=== PATIENT | female | born 1995 | race Two or more races ===

== ENCOUNTER 2016-09-14 11:17 | Observation (INO) | payer SELFPAY ==
[2016-05-30 23:00] VITALS: BP 125/65
[~2016-09-14 11:17] MED LIST: METR500T PO; PNV1TABL25 PO
[2016-09-14] MEDS ORDERED: hydrOXYzine PAMOATE 25 MG CAPSULE PO ONE (12:30)
[2016-09-14] MEDS ORDERED: ACETAMINOPHEN 500 MG TABLET PO ONE (12:30)
== END 2016-09-14 13:45 | disposition home or self-care (01) ==
LOC: 3 SO LND 11:17 → MERGE 11:17
PROVIDERS: ADMIT Specialist; ATTEND Specialist
DX: O26.892 Other specified pregnancy related conditions, second trimester (principal); M54.9 Dorsalgia, unspecified; Z3A.24 24 weeks gestation of pregnancy
CPT/HCPCS: G0378; G0379; Q0177

== ENCOUNTER 2016-10-07 16:48 | Observation (INO) | payer SELFPAY ==
[2016-05-30 23:00] VITALS: BP 125/65
== END 2016-10-07 19:30 | disposition home or self-care (01) ==
LOC: 3 SO LND 16:48
PROVIDERS: ADMIT Obstetrics & Gynecology; ATTEND Obstetrics & Gynecology
DX: O26.892 Other specified pregnancy related conditions, second trimester (principal); N89.8 Other specified noninflammatory disorders of vagina; Z3A.27 27 weeks gestation of pregnancy
CPT/HCPCS: G0378; G0379

== ENCOUNTER 2016-10-15 11:12 | Observation (INO) | payer SELFPAY ==
[2016-05-30 23:00] VITALS: BP 125/65
[2016-10-15 12:30] LABS: BILIRUBIN,URINE NEGATIVE (NEG); GLUCOSE,URINE NEGATIVE (NEG); NITRITE,URINE NEGATIVE (NEG); PROTEIN,URINE 30 mg/dL (NEG-TRACE)
[2016-10-15] MEDS ORDERED: IV RINGERS,LACTATED 1000ML 1,000 ML IV SCH (12:30)
[2016-10-15 12:34] LABS: BARBITURATES NEG (NEG); BENZODIAZEPINES NEG (NEG); CANNABINOIDS NEG (NEG); COCAINE NEG (NEG); METHADONE NEG (NEG); OPIATES NEG (NEG); PHENCYCLIDINE NEG (NEG)
[2016-10-15 12:55] LABS: BACTERIA,URINE MODERATE /HPF (0-FEW); RBC,URINE 0 /HPF (0-2); SQUAMOUS EPITHELIAL CELL,UR MOD /LPF
[2016-10-15] MEDS ORDERED: hydrOXYzine IM 50 MG/ML VIAL IM ONE (13:30)
== END 2016-10-15 19:42 | disposition home or self-care (01) ==
LOC: 3 SO LND 11:12
PROVIDERS: ADMIT Obstetrics & Gynecology; ATTEND Obstetrics & Gynecology
DX: Z34.90 Encounter for supervision of normal pregnancy, unspecified, unspecified trimester (principal); Z3A.00 Weeks of gestation of pregnancy not specified
CPT/HCPCS: 81001; 87086; G0378; G0379; G0481; J3410

== ENCOUNTER 2016-12-01 12:31 | Observation (INO) | payer SELFPAY ==
[2016-05-30 23:00] VITALS: BP 125/65
[2016-12-01] MEDS ORDERED: IV RINGERS,LACTATED 1000ML 1,000 ML IV SCH (13:30)
[2016-12-01 14:02] LABS: BILIRUBIN,URINE NEGATIVE (NEG); GLUCOSE,URINE NEGATIVE (NEG); NITRITE,URINE NEGATIVE (NEG); PROTEIN,URINE NEGATIVE (NEG-TRACE); UROBILINOGEN,URINE 0.2 mg/dL (0.2 mg/dL)
[2016-12-01 14:08] LABS: BARBITURATES NEG (NEG); BENZODIAZEPINES NEG (NEG); CANNABINOIDS NEG (NEG); COCAINE NEG (NEG); METHADONE NEG (NEG); OPIATES NEG (NEG); PHENCYCLIDINE NEG (NEG)
== END 2016-12-01 15:20 | disposition home or self-care (01) ==
LOC: 3 SO LND 12:31
PROVIDERS: ADMIT Obstetrics & Gynecology; ATTEND Obstetrics & Gynecology
DX: O36.8130 Decreased fetal movements, third trimester, not applicable or unspecified (principal); O21.2 Late vomiting of pregnancy; Z3A.00 Weeks of gestation of pregnancy not specified
CPT/HCPCS: 80307; 81003; G0378; G0379; G0479

== ENCOUNTER 2020-07-26 09:06 | Emergency (ER) | payer SELFPAY ==
[~2020-07-26] VITALS: Ht 149.9 cm; Wt 59.0 kg
[~2020-07-26 09:06] MED LIST changes: +CEPH-264 PO
--- NOTE | 2020-07-26 09:30 | ED.ADGEN ---
Past Medical History Past Medical History: No Pertinent History Past Surgical History: No Surgical History Smoking Status: Never Smoker Alcohol Use: None Drug Use: None General Adult EDM: Chief Complaint: FLU SYMPTOM HPI: HPI: Patient is a 24-year-old female who arrives ambulatory to the emergency department complaining of a 3-day history of body aches with headaches and low- grade fevers. Patient also reports to nausea with vomiting and diarrhea during this time as well. Patient further states that she has right lower quadrant abdominal pain which is gotten progressively worse during this time. Patient is unaware however of any known sick contacts. Additionally she denies any shortness of air or chest pain however she does report some tightness. She states that this time she is unable to eat or drink reliably as everything she ingests is regurgitated. She is awake, alert and uncomfortable appearing Review of Systems: Review of Systems: Constitutional: Reports fever. chills. [] Eyes: Denies change in visual acuity. [] HENT: Denies nasal congestion or sore throat. [] Respiratory: Denies cough or shortness of breath. [] Cardiovascular: Denies chest pain or edema. [] GI: Denies abdominal pain, nausea, vomiting or diarrhea. [] : Reports right flank pain. Denies dysuria. [] Musculoskeletal: Reports body aches. [] Integument: Denies rash. [] Neurologic: Reports headache. Denies focal weakness or sensory changes. [] Endocrine: Denies polyuria or polydipsia. [] Lymphatic: Denies swollen glands. [] Psychiatric: Denies depression or anxiety. [] Current Medications: Current Medications Medications (Trade) Dose Ordered Sig/Georgie Start Time Stop Time Status Last Admin Dose Admin Acetaminophen (Tylenol) 650 mg 1X ONCE 07/26/20 11:15 07/26/20 11:16 DC 07/26/20 11:22 650 MG Ceftriaxone Sodium (Rocephin) 1 gm 1X ONCE 07/26/20 10:15 07/26/20 10:17 DC 07/26/20 10:58 1 GM Diphenhydramine HCl (Benadryl) 50 mg 1X ONCE 07/26/20 09:30 07/26/20 09:31 DC 07/26/20 09:32 50 MG Metoclopramide HCl (Reglan Vial) 10 mg 1X ONCE 07/26/20 09:30 07/26/20 09:31 DC 07/26/20 09:32 10 MG Sodium Chloride 1,000 ml @ 1,000 mls/hr 1X ONCE 07/26/20 11:15 07/26/20 12:14 07/26/20 11:22 1,000 MLS/HR Allergies: Allergies: Allergies Coded Allergies Type Severity Reaction Last Updated Verified No Known Drug Allergies 09/16/16 No Physical Exam: PE: Constitutional: Uncomfortable appearing. Well developed, well nourished, non- toxic appearance. [] HENT: Normocephalic, atraumatic, bilateral external ears normal, oropharynx moist, no oral exudates, nose normal. [] Eyes: PERRLA, EOMI, conjunctiva normal, no discharge. [] Neck: Normal range of motion, no tenderness, supple, no stridor. [] Cardiovascular: Tachycardia, no murmur [] Lungs & Thorax: Bilateral breath sounds clear to auscultation [] Abdomen: Bowel sounds normal, soft, no tenderness, masses, no pulsatile masses. [] Skin: Warm, dry, no erythema, no rash. [] Back: Right-sided CVA tenderness. [] Extremities: No tenderness, no cyanosis, no clubbing, ROM intact, no edema. [] Neurologic: Alert and oriented X 3, normal motor function, normal sensory function, no focal deficits noted. [] Psychologic: Affect normal, judgement normal, mood normal. [] Current Patient Data: Labs: Laboratory Tests Test 07/26/20 09:17 07/26/20 09:18 07/26/20 09:35 Urine Collection Type U bag Urine Color Yellow Urine Clarity Clear Urine pH 6.5 (<5.0-8.0) Urine Specific [place] 1.015 (1.000-1.030) Urine Protein 100 mg/dL (NEG-TRACE) Urine Glucose (UA) Negative mg/dL (NEG) Urine Ketones (Stick) >=80 mg/dL (NEG) Urine Blood Small (NEG) Urine Nitrite Negative (NEG) Urine Bilirubin Negative (NEG) Urine Urobilinogen Dipstick 2.0 mg/dL (0.2 mg/dL) Urine Leukocyte Esterase Large (NEG) Urine RBC 0 /HPF (0-2) Urine WBC 20-40 /HPF (0-4) Urine Squamous Epithelial Cells Occ /LPF Urine Bacteria Few /HPF (0-FEW) Urine Mucus Slight /LPF POC Urine HCG, Qualitative Hcg negative (Negative) White Blood Count 16.0 x10^3/uL (4.0-11.0) H Red Blood Count 4.12 x10^6/uL (3.50-5.40) Hemoglobin 13.3 g/dL (12.0-15.5) Hematocrit 38.6 % (36.0-47.0) Mean Corpuscular Volume 94 fL (79-100) Mean Corpuscular Hemoglobin 32 pg (25-35) Mean Corpuscular Hemoglobin Concent 34 g/dL (31-37) Red Cell Distribution Width 12.7 % (11.5-14.5) Platelet Count 199 x10^3/uL (140-400) Neutrophils (%) (Auto) 85 % (31-73) H Lymphocytes (%) (Auto) 9 % (24-48) L Monocytes (%) (Auto) 6 % (0-9) Eosinophils (%) (Auto) 0 % (0-3) Basophils (%) (Auto) 0 % (0-3) Neutrophils # (Auto) 13.6 x10^3/uL (1.8-7.7) H Lymphocytes # (Auto) 1.4 x10^3/uL (1.0-4.8) Monocytes # (Auto) 1.0 x10^3/uL (0.0-1.1) Eosinophils # (Auto) 0.0 x10^3/uL (0.0-0.7) Basophils # (Auto) 0.0 x10^3/uL (0.0-0.2) Platelet Estimate Pending Sodium Level 137 mmol/L (136-145) Potassium Level 3.5 mmol/L (3.5-5.1) Chloride Level 100 mmol/L (98-107) Carbon Dioxide Level 24 mmol/L (21-32) Anion Gap 13 (6-14) Blood Urea Nitrogen 5 mg/dL (7-20) L Creatinine 0.7 mg/dL (0.6-1.0) Estimated GFR (Cockcroft-Gault) 102.0 BUN/Creatinine Ratio 7 (6-20) Glucose Level 113 mg/dL (70-99) H Calcium Level 8.8 mg/dL (8.5-10.1) Total Bilirubin 0.6 mg/dL (0.2-1.0) Aspartate Amino Transferase (AST) 19 U/L (15-37) Alanine Aminotransferase (ALT) 15 U/L (14-59) Alkaline Phosphatase 95 U/L (46-116) Total Protein 8.1 g/dL (6.4-8.2) Albumin 3.8 g/dL (3.4-5.0) Albumin/Globulin Ratio 0.9 (1.0-1.7) L Laboratory Tests 07/26/20 09:35 Laboratory Tests 07/26/20 09:35 Vital Signs: Vital Signs Date Time Temp Pulse Resp B/P (MAP) Pulse Ox O2 Delivery O2 Flow Rate FiO2 07/26/20 10:48 112 24 114/65 (81) 100 Room Air 07/26/20 09:13 100.5 100.5 EKG: EKG: [] Heart Score: C/O Chest Pain: No Risk Factors: Risk Factors: DM, Current or recent (<one month) smoker, HTN, HLP, family history of CAD, obesity. Risk Scores: Score 0 - 3: 2.5% MACE over next 6 weeks - Discharge Home Score 4 - 6: 20.3% MACE over next 6 weeks - Admit for Clinical Observation Score 7 - 10: 72.7% MACE over next 6 weeks - Early Invasive Strategies Radiology/Procedures: Radiology/Procedures: [] Course & Med Decision Making: Course & Med Decision Making Pertinent Labs and Imaging studies reviewed. (See chart for details) [] Kim Disclaimer: Kim Disclaimer: This electronic medical record was generated, in whole or in part, using a voice recognition dictation system. Departure Departure Impression: Primary Impression: Pyelonephritis Disposition: HOME / SELF CARE / HOMELESS Condition: STABLE Referrals: NO PCP (PCP) Patient Instructions: Pyelonephritis, Adult Additional Instructions: The patient remains awake, alert and reports to feeling much better. Nonetheless patient does have clinical evidence of pyelonephritis. I did offer the patient admission for symptoms and the patient is politely declined stating she would like to go home and try and treat this with antibiotics and pain medication. I advised during this time that she hydrate herself and restrict her activity. Should she develop any new fevers, worsening pain or vomiting I advised her to return. The patient understands and states she will do so. She is nontoxic-appearing and stable for discharge. 1152 Patient was reevaluated after an additional liter fluid. The patient does not have any further episodes of vomiting nor does she have any abdominal pain. I did inquire about possible admission yet again and the patient politely declined stating she really wanted to go home and treat this with the prescriptions she has been provided. I have encouraged her to return with any concerns with respect to her health or any decline/negative event that may develop. The patient understood and stated she would return as needed. She is nontoxic- appearing and stable for discharge Scripts Cephalexin (CEPHALEXIN) 500 Mg Capsule 1 CAP PO QID, #40 CAP Prov: VANESA SHIRLEY DO 07/26/20 Hydrocodone Bit/Acetaminophen (HYDROCODONE-APAP 5-325 ) 1 Tab Tablet 1 TAB PO PRN Q6HRS PRN for PAIN for 3 Days, #12 TAB 0 Refills Prov: VANESA SHIRLEY DO 07/26/20 VANESA SHIRLEY DO Jul 26, 2020 09:30
[2020-07-26] MEDS: diphenhydrAMINE 50 MG/ML VIAL IVP ONE (09:32)
[2020-07-26] MEDS: IV NORMAL SALINE 1000ML BAG 1,000 ML IV ONE ×2 (09:32→11:22)
[2020-07-26] MEDS: METOCLOPRAMIDE HCL 10 MG/2 ML VIAL. IVP ONE (09:32)
[2020-07-26 09:50] LABS: BILIRUBIN,URINE NEGATIVE (NEG); CLARITY,URINE CLEAR; COLOR,URINE YELLOW; NITRITE,URINE NEGATIVE (NEG); PH,URINE 6.5 (<5.0-8.0); PROTEIN,URINE 100 mg/dL (NEG-TRACE)
[2020-07-26 09:51] LABS: BASO % 0 % (0-3); EOS % 0 % (0-3); HEMATOCRIT 38.6 % (36.0-47.0); HEMOGLOBIN 13.3 g/dL (12.0-15.5); LYMPH # 1.4 x10^3/uL (1.0-4.8); LYMPH % 9 % (24-48); MEAN CORPUSCULAR HEMOGLOBIN 32 pg (25-35); MEAN CORPUSCULAR HGB CONC 34 g/dL (31-37); MEAN CORPUSCULAR VOLUME 94 fL (79-100); MONO % 6 % (0-9); NEUT # 13.6 x10^3/uL (1.8-7.7); NEUT % 85 % (31-73); PLATELET COUNT 199 x10^3/uL (140-400); RED BLOOD COUNT 4.12 x10^6/uL (3.50-5.40); RED CELL DISTRIBUTION WIDTH 12.7 % (11.5-14.5)
[2020-07-26 09:55] LABS: CALCIUM 8.8 mg/dL (8.5-10.1); CREATININE 0.7 mg/dL (0.6-1.0); POTASSIUM 3.5 mmol/L (3.5-5.1)
[2020-07-26 10:01] LABS: ALBUMIN 3.8 g/dL (3.4-5.0); ALBUMIN/GLOBULIN RATIO 0.9 (1.0-1.7); TOTAL BILIRUBIN 0.6 mg/dL (0.2-1.0); TOTAL PROTEIN 8.1 g/dL (6.4-8.2)
[2020-07-26 10:07] LABS: RBC,URINE 0 /HPF (0-2)
[2020-07-26 10:08] LABS: BACTERIA,URINE FEW /HPF (0-FEW); WBC,URINE 20-40 /HPF (0-4)
[2020-07-26] MEDS: cefTRIAXone IV Push 1 GM VIAL. IVP ONE (10:58)
[2020-07-26] MEDS ORDERED: HYDR-2761 PO (11:01)
[2020-07-26] MEDS ORDERED: CEPH500C PO (11:01)
[2020-07-26] MEDS: ACETAMINOPHEN 325 MG TABLET. PO ONE (11:22)
[2020-07-26 12:18] VITALS: BP 113/55
[2020-07-26 12:52] LABS: % BANDS 6 % (0-9); % LYMPHS 5 % (24-48); % MONOS 2 % (0-10); % SEGS 87 % (35-66)
[2020-07-26 12:53] LABS: PLT ESTIMATE ADEQUATE (ADEQUATE)
== END 2020-07-26 12:39 | disposition home or self-care (01) ==
LOC: ER 09:06
DX: N12 Tubulo-interstitial nephritis, not specified as acute or chronic (principal); Z20.822 Contact with and (suspected) exposure to COVID-19; R10.31 Right lower quadrant pain; R51.9 Headache, unspecified; R11.2 Nausea with vomiting, unspecified; R19.7 Diarrhea, unspecified; R50.9 Fever, unspecified
CPT/HCPCS: 36415; 80053; 81001; 81025; 85007; 85025; 87086; 96361; 96374; 96375; 99285; J0696; J1200; J2765; J7030; U0003; U0005

== ENCOUNTER 2021-03-23 11:54 | Emergency (ER) | payer SELFPAY ==
[~2021-03-23] VITALS: Ht 149.9 cm; Wt 59.0 kg
[~2021-03-23 11:54] MED LIST changes: +CEPH500C PO; +HYDR-2761 PO
[2021-03-23 12:20] VITALS: BP 106/53
[2021-03-23] MEDS ORDERED: KETOROLAC 60 MG/2 ML VIAL. IM ONE (13:15)
[2021-03-23] MEDS ORDERED: HYDROcodone/APAP 5/325MG 1 TAB TABLET PO ONE (13:15)
[2021-03-23] MEDS ORDERED: methylPREDNISolone ACETATE 40 MG/ML VIAL. IM ONE (13:15)
[2021-03-23 13:26] LABS: BILIRUBIN,URINE NEGATIVE (NEG); CLARITY,URINE CLEAR; COLOR,URINE YELLOW; NITRITE,URINE NEGATIVE (NEG); PROTEIN,URINE NEGATIVE (NEG-TRACE); UROBILINOGEN,URINE 0.2 mg/dL (0.2 mg/dL)
[2021-03-23 13:36] LABS: BACTERIA,URINE 0 /HPF (0-FEW); RBC,URINE OCC /HPF (0-2); WBC,URINE OCC /HPF (0-4)
--- NOTE | 2021-03-23 13:49 | RAD ---
EXAM: Lumbar spine CT without contrast. HISTORY: Midline pain. TECHNIQUE: Computed tomographic images of the lumbar spine were obtained without contrast. Multiplana r reformatting was performed. *One or more of the following individualized dose reduction techniques were utilized for this examina tion: 1. Automated exposure control. 2. Adjustment of the mA and/or kV according to patient size. 3. Use of iterative reconstruction technique. COMPARISON: None. FINDINGS: There is a transitional lumbosacral segment. This is considered a partially sacralized L5 s egment with rudimentary L5-S1 disc for this dictation. The sacralized L5 transverse processes pseudoa rticulates with the underlying sacrum. This is a normal variant. There is minimal lumbar scoliosis. T here is no listhesis. The vertebral bodies are normal in height. There is no suspicious osseous lesio n. At L1-L2, L2-L3 and L3-L4, there is no stenosis. At L4-L5, there is a left paracentral to lateral recess disc protrusion. This effaces the left latera l recess and likely abutment the traversing left L5 nerve root. There is mild central canal stenosis. At L5-S1, there is no stenosis. IMPRESSION: 1. No acute osseous finding. 2. Left paracentral to left lateral recess disc protrusion at L4-L5, contributing to effacement of th e left lateral recess and likely abutment of the traversing left L5 nerve root and mild central canal stenosis. 3. Transitional lumbosacral segment, a normal variant. 4. Mild scoliosis. Electronically signed by: Dara Rivera MD (03/23/2021 1:47 PM) [id number]
--- NOTE | 2021-03-23 14:08 | PHYS DOC ---
Past Medical History Past Medical History: No Pertinent History Past Surgical History: No Surgical History Smoking Status: Never Smoker Alcohol Use: Occasionally Drug Use: None General Adult EDM: Chief Complaint: LOWER BACK PAIN OR INJURY HPI: HPI: Patient is a 25-year-old female presents to the emergency department complaining of low back pain. For the past several months. Patient states it is worse if she is walking around, denies pain when she is lying still. Patient denies. Traumatic injury however does report her pain did not start until after she gave to her baby. Patient denies increased urinary frequency, burning with urination, pressure with urination, or other dysuria, denies vaginal discharge, denies vaginal bleeding or STI concerns, denies rashes or lesions to her vagina. Patient denies numbness or tingling down her extremities, denies loss of bowel or bladder control, denies urinary retention, denies history of IV drug use, immunosuppression, cancers, fever or chills, saddle anesthesias. Patient reports her last menstrual cycle was 1 week ago with normal duration of flow. Patient denies other physical complaints or physical concerns. Review of Systems: Review of Systems: 14 body systems of review of systems have been reviewed. See HPI for pertinent positives and negative responses, otherwise all other systems are negative, nonpertinent or noncontributory. Constitutional: Negative except as outlined in HPI above. Skin: Negative except as outlined in HPI above. Eyes: Negative except as outlined in HPI above. HENT: Negative except as outlined in HPI above. Respiratory: Negative except as outlined in HPI above. Cardiovascular: Negative except as outlined in HPI above. GI: Negative except as outlined in HPI above. : Negative except as outlined in HPI above. Musculoskeletal: Negative except as outlined in HPI above. Integument: Negative except as outlined in HPI above. Neurologic: Negative except as outlined in HPI above. Endocrine: Negative except as outlined in HPI above. Lymphatic: Negative except as outlined in HPI above. Psychiatric: Negative except as outlined in HPI above. Heart Score: C/O Chest Pain: No Risk Factors: Risk Factors: DM, Current or recent (<one month) smoker, HTN, HLP, family history of CAD, obesity. Risk Scores: Score 0 - 3: 2.5% MACE over next 6 weeks - Discharge Home Score 4 - 6: 20.3% MACE over next 6 weeks - Admit for Clinical Observation Score 7 - 10: 72.7% MACE over next 6 weeks - Early Invasive Strategies Current Medications: Current Medications Medications (Trade) Dose Ordered Sig/[facility] Start Time Stop Time Status Last Admin Dose Admin Acetaminophen/ Hydrocodone Bitart (Lortab 5/325) 1 tab 1X ONCE 03/23/21 13:15 03/23/21 13:16 DC 03/23/21 13:45 1 TAB Ketorolac Tromethamine (Toradol Im) 60 mg 1X ONCE 03/23/21 13:15 03/23/21 13:16 DC 03/23/21 13:45 60 MG Methylprednisolone Acetate (DEPO-Medrol 40MG VIAL) 40 mg 1X ONCE 03/23/21 13:15 03/23/21 13:16 DC 03/23/21 13:46 40 MG Allergies: Allergies: Allergies Coded Allergies Type Severity Reaction Last Updated Verified No Known Drug Allergies 09/16/16 No Physical Exam: PE: Constitutional: Well developed, well nourished, no acute distress, non-toxic appearance. 25-year-old female in no apparent distress. HENT: Normocephalic, atraumatic. Eyes: Conjunctiva normal, no discharge. Neck: Normal range of motion, no stridor. Cardiovascular: No cyanosis appreciated, distal cap refill less than 2 seconds. Lungs & Thorax: Patient is in no respiratory distress, no audible adventitious lung sounds appreciated. Abdomen: Nontender, no abnormalities noted. Skin: Warm, dry, no erythema, no rash. Back: No tenderness, no deformities. Extremities: No tenderness, no cyanosis, no clubbing, ROM intact, no edema. Intact 5/5 motor strength with hip flexion, knee flexion/extension/abduction, plantar/dorsiflexion at the ankle, and dorsiflexion of the toes bilaterally. Neurologic: Alert and oriented X 3, normal motor function, normal sensory function, no focal deficits noted. Psychologic: Affect normal, judgement normal, mood normal. Current Patient Data: Labs: Laboratory Tests Test 03/23/21 12:55 03/23/21 13:18 Urine Collection Type Unknown Urine Color Yellow Urine Clarity Clear Urine pH 6.0 (<5.0-8.0) Urine Specific [place] 1.025 (1.000-1.030) Urine Protein Negative mg/dL (NEG-TRACE) Urine Glucose (UA) Negative mg/dL (NEG) Urine Ketones (Stick) Negative mg/dL (NEG) Urine Blood Negative (NEG) Urine Nitrite Negative (NEG) Urine Bilirubin Negative (NEG) Urine Urobilinogen Dipstick 0.2 mg/dL (0.2 mg/dL) Urine Leukocyte Esterase Negative (NEG) Urine RBC Occ /HPF (0-2) Urine WBC Occ /HPF (0-4) Urine Squamous Epithelial Cells Few /LPF Urine Bacteria 0 /HPF (0-FEW) Urine Mucus Marked /LPF POC Urine HCG, Qualitative Hcg negative (Negative) Vital Signs: Vital Signs Date Time Temp Pulse Resp B/P (MAP) Pulse Ox O2 Delivery O2 Flow Rate FiO2 03/23/21 12:20 98.3 82 12 106/53 (70) 100 Room Air 98.3 EKG: EKG: [] Radiology/Procedures: Radiology/Procedures: STATUS: REG ER ORD. PHYSICIAN: SURINDER VELAZCO APRN REASON: Midline lumbar/sacral pain PROCEDURE: CT LUMBAR SPINE WO CONTRAST EXAM: Lumbar spine CT without contrast. HISTORY: Midline pain. TECHNIQUE: Computed tomographic images of the lumbar spine were obtained without contrast. Multiplanar reformatting was performed. *One or more of the following individualized dose reduction techniques were utilized for this examination: 1. Automated exposure control. 2. Adjustment of the mA and/or kV according to patient size. 3. Use of iterative reconstruction technique. COMPARISON: None. FINDINGS: There is a transitional lumbosacral segment. This is considered a partially sacralized L5 segment with rudimentary L5-S1 disc for this dictation. The sacralized L5 transverse processes pseudoarticulates with the underlying sacrum. This is a normal variant. There is minimal lumbar scoliosis. There is no listhesis. The vertebral bodies are normal in height. There is no suspicious osseous lesion. At L1-L2, L2-L3 and L3-L4, there is no stenosis. At L4-L5, there is a left paracentral to lateral recess disc protrusion. This effaces the left lateral recess and likely abutment the traversing left L5 nerve root. There is mild central canal stenosis. At L5-S1, there is no stenosis. IMPRESSION: 1. No acute osseous finding. 2. Left paracentral to left lateral recess disc protrusion at L4-L5, contributing to effacement of the left lateral recess and likely abutment of the traversing left L5 nerve root and mild central canal stenosis. 3. Transitional lumbosacral segment, a normal variant. 4. Mild scoliosis. Electronically signed by: Dara Rivera MD (03/23/2021 1:47 PM) [id number] Course & Med Decision Making: Course & Med Decision Making Pertinent Labs and Imaging studies reviewed. (See chart for details) 25-year-old female, vital signs reviewed, resents emerged department concerning low back pain for several months. Physical presentation is distant with sciatica versus lumbago versus other acute bony process. Will order CT lumbar spine, give p.o. pain medications, IM steroid injection. Urinalysis assay, urine test. The patient's urine is not infected, she is not per urine test, CT of L-spine concerning for L4-L5 bulging disc, upon reevaluation of the patient, patient reports she is now pain-free stating the medication she was given in the ED have helped her tremendously, discussed with patient strict follow-up with primary care physician for ongoing pain management, neurosurgeon for ongoing management of CT findings, continue NSAID therapy for ongoing aches and pains, will prescribe Medrol Dosepak. Patient gave verbal understanding of and is amenable to ED discharge planning. Patient has intact 5/5 motor strength with hip flexion, knee flexion,extension, knee adduction, plantar/dorsiflexion at the ankle, and dorsiflexion of the toe bilaterally. Additionally there was no hx of IVDU, Immunosuppression, cancer, fever/chills, saddle anesthesia, bowel/bladder incontinence/retention, or trauma that would necessitate emergent imaging. Discussed with the patient all findings and diagnostic testing as well as the ak ed to follow-up with their primary care provider for further evaluation and treatment or return to the ED if any new or worsening symptoms. Strict return precautions were also discussed at length, the patient voiced understanding and agreement with the discharge planning. The patient was nontoxic in appearance, in no apparent distress, and hemodynamically stable at the time of disposition. Dragon Disclaimer: Dragon Disclaimer: This electronic medical record was generated, in whole or in part, using a voice recognition dictation system. Departure Departure Impression: Primary Impression: Low back pain Qualified Codes: M54.50 - Low back pain, unspecified Additional Impression: Abnormal CT scan, lumbar spine Disposition: HOME / SELF CARE / HOMELESS Condition: GOOD Referrals: NO PCP (PCP) QUE GIBBS MD Patient Instructions: Back Pain, Adult Additional Instructions: You were seen today in the emergency department for back pain. As we discussed the CT imaging of your lumbar spine showed disc abnormalities that is most likely causing your intermittent pains. I am prescribing you a steroid regimen to take, please take as prescribed, you may use [id number] ibuprofen or NSAIDs for ongoing aches and pains. I have provided you a list of area primary care providers, please choose 1 to establish primary care for ongoing management of your back problems. I have also given information to see a neurosurgeon, please call Wednesday for an appointment for ongoing management of your back discomfort. Thank you for visiting our Emergency Department. It was a pleasure taking care of you today in the emergency department and we appreciate you trusting us with your care. If any additional problems come up don't hesitate to return to visit us. Please follow up with your primary care provider so they can plan additional care if needed and know about the problem that you had. If symptoms worsen come back to the Emergency Department. Any concerning symptoms that start such as chest pain, shortness of air, weakness or numbness on one side of the body, running high fevers or any other concerning symptoms return to the ER. EMERGENCY DEPARTMENT GENERAL DISCHARGE INSTRUCTIONS Thank you for coming to [facility] Emergency Department (ED) today and trusting us with you care. We trust that you had a positive experience in our Emergency Department. If you wish to speak to the department management, you may call the Director at [phone]. YOUR FOLLOW UP INSTRUCTIONS ARE FOLLOWS: 1. Do you have a private Doctor? If you do not have a private doctor, please ask for a resource list of physicians or clinics that may be able to assist you with follow up care. 2. The Emergency Physicain has interpreted your x-rays. The X-Ray specialist will also review them. If there is a change in the findings, you will be notified in 48 hours when at all possible. 3. A lab test or culture has been done, your results will be reviewed and you will be notified if you need a change in treatment. ADDITIONAL INSTRUCTIONS AND INFORMATION: 1. Your care today has been supervised by a physician who is specially trained in emergency care. Many problems require more than one evaluation for a complete diagnosis and treatment. We recommend that you schedule your follow up appointment as recommended to ensure complete treatment of you illness or injury. If you are unable to obtain follow up care and continue to have a problem, or if your condition worsens, we recommend that you return to the ED. 2. We are not able to safely determine your condition over the phone nor are we able to give sound medical advice over the phone. For these safety reasons, if you call for medical advice we will ask you to come to the ED for further evaluation. 3. If you have any questions regarding these discharge instructions please call the ED at [phone]. SAFETY INFORMATION: In the interest of safety, wellness, and injury prevention; we encourage you to wear your sealbelt, if you smoke; quite smoking, and we encourage family to use a protective helmet for bicycling and other sporting events that present an increased risk for head injury. IF YOUR SYMPTOMS WORSEN OR NEW SYMPTOMS DEVELOP, OR YOU HAVE CONCERNS ABOUT YOUR CONDITION; OR IF YOUR CONDITION WORSENS WHILE YOU ARE WAITING FOR YOUR FOLLOW UP APPOINTMENT; EITHER CONTACT YOUR PRIMARY CARE DOCTOR, THE PHYSICIAN WHOSE NAME AND NUMBER YOU WERE GIVEN, OR RETURN TO THE ED IMMEDIATELY. Scripts Prednisone (PREDNISONE) 20 Mg Tablet 1 TAB PO DAILY for back pain, #15 TAB 0 Refills Prov: SURINDER VELAZCO APRN 03/23/21 Ibuprofen (IBUPROFEN) 600 Mg Tablet 600 MG PO PRN Q6HRS PRN for INFLAMMATION, #20 TAB 0 Refills Prov: SURINDER VELAZCO APRN 03/23/21 SURINDER VELAZCO APRN Mar 23, 2021 14:08
[2021-03-23] MEDS ORDERED: PRED20TA PO (14:25)
[2021-03-23] MEDS ORDERED: IBUP-1007 PO (14:25)
== END 2021-03-23 14:52 | disposition home or self-care (01) ==
LOC: ER 11:54
DX: M54.50 Low back pain, unspecified (principal); R93.7 Abnormal findings on diagnostic imaging of other parts of musculoskeletal system
CPT/HCPCS: 72131; 81001; 81025; 96372; 99284; J1030; J1885